=== PATIENT | male | born 1945 | race African-American/Black ===

== ENCOUNTER 2017-09-17 07:59 | Outpatient (CLI) | payer MEDICARE ==
--- NOTE | 2017-09-17 10:08 | MRI ---
MRI LUMBAR SPINE WITHOUT CONTRAST: HISTORY: Low back pain. 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 COMPARISON: None. FINDINGS: Aortic contour is unremarkable. There appears to be extensive retroperitoneal adenopathy. Abnormal appearance of the left kidney which is dysmorphic. Numerous T2 mildly hyperintense foci which are round throughout the liver. There are extensive areas of loss of T1 marrow signal throughout the thoracolumbar spine as well as o f the sacrum. Levels are as follows: T12-L1: Severe height loss of disk space. Circumferential disk bulge and posterior disk-osteophyte complex. The spinal canal measures 9 mm. Moderate facet arthropathy. Moderate degenerative disease at the spinous processes. L1-L2: Moderate degenerative disk space height loss and circumferential disk bulge. Moderate facet arthrosis. The spinal canal measures 8 mm. L2-3: Severe degenerative disk space height loss. Circumferential disk bulge. Posterior disk-osteo phyte complex. Moderate to severe left and moderate right-sided facet arthropathy. The spinal canal is narrowed to approximately 5 mm. There is severe left and moderate to severe right neural foraminal narrowing. L3-4: Moderate degenerative disk space height loss. Severe facet arthropathy. Severe disk-osteophy te complex. The spinal canal is narrowed to approximately 6 mm. There is severe left and moderate t o severe right neural foraminal narrowing. L4-5: Posterior disk-osteophyte complex. There is narrowing of the spinal canal to approximately 4 mm. Moderate to severe right and moderate left side neural foraminal narrowing. L5-S1: Moderate degenerative disk space height loss. IMPRESSION: 1. Multifocal areas of osseous metastatic disease at the thoracolumbar spine as well as the sacrum. No evidence for pathologic fracture. 2. Multilevel moderate to severe degenerative disease as described above with neural foraminal and s eleuterio canal narrowing. 3. Free fluid in the pelvis with concern for retroperitoneal adenopathy and possibly even peritoneal studding of malignancy. CT of the abdomen and pelvis with contrast recommended. 4. Areas of potential clumping of nerve roots may be due to multilevel spinal canal narrowing or les s likely meningeal spread of tumor. MRI lumbar spine with and without contrast would be necessary fo r that finding. 5. Free fluid in the pelvis as well as vascular congestion may be sequelae of metastatic disease. 6. Very dysmorphic appearance of the left kidney. Again, a CT abdomen and pelvis with contrast is r ecommended. Kira Rich notified of findings via telephone at 9:10 a.m. CODE CR POS: [facility]
== END 2017-09-17 08:00 | disposition home or self-care (01) ==
LOC: MRI 07:59
PROVIDERS: ATTEND Nurse Practitioner Family
DX: M47.816 Spondylosis without myelopathy or radiculopathy, lumbar region (principal); C79.51 Secondary malignant neoplasm of bone; M48.061 Spinal stenosis, lumbar region without neurogenic claudication; M99.73 Connective tissue and disc stenosis of intervertebral foramina of lumbar region
CPT/HCPCS: 72148

== ENCOUNTER 2017-09-18 07:43 | Outpatient (CLI) | payer MEDICARE ==
[2017-09-18] MEDS ORDERED: Iopamidol 370 76% 100 ML VIAL ONE (16:51)
== END 2017-09-18 07:44 | disposition home or self-care (01) ==
LOC: BICCT 07:43
PROVIDERS: ATTEND Internal Medicine
DX: R10.12 Left upper quadrant pain (principal); R93.5 Abnormal findings on diagnostic imaging of other abdominal regions, including retroperitoneum
CPT/HCPCS: 74177

== ENCOUNTER 2017-10-04 19:36 | Inpatient (IN) | payer MEDICARE ==
[2017-10-04] MEDS ORDERED: Fentanyl 100 MCG/2 ML VIAL ONE (19:48)
[2017-10-04] MEDS ORDERED: EPINEPHrine 1 MG, Admixture Fee 1 EACH in Dextrose 5% in Water 250 ML IVPB SCH ×3 (20:00)
[2017-10-04 20:08] LABS: pH, Arterial 6.98 (7.35-7.45)
[2017-10-04] MEDS ORDERED: Albuterol Sulfate 2.5 mg/0.5 ml Neb ONE (20:10)
[2017-10-04] MEDS ORDERED: Dextrose 50% Abboject 50 ML SYRINGE ONE (20:11)
[2017-10-04 20:12] LABS: INR-International Normal Ratio 3.7; PTT 53.2 SEC (22.9-36.1); Prothrombin Time 38.5 SEC (12.0-14.7)
[2017-10-04 20:14] LABS: Base Excess-Venous -25.9 mmol/L (-30.0-30.0); Bicarbonate (HCO3v) 10.4 mmol/L (1.0-85.0); CO2 Tension (PvCO2) 77.8 mmHg (41.0-51.0); Calcium, Ionized 1.43 mmol/L (1.12-1.32); Hemoglobin - Calc 12.5 g/dL (12.0-18.0); O2 Tension (PvO2) 63.3 mmHg (35.0-45.0); T. Carbon Dioxide 12.8 mmol/L (1.0-85.0); pH (Venous) 6.736 (7.35-7.45); vO2 Saturation-calc 61.1 % (0.0-100.0)
[2017-10-04] MEDS ORDERED: fentaNYL Citrate/PF 2,000 MCG in Sodium Chloride 0.9% 60 ML IV SCH (20:15)
[2017-10-04 20:20] LABS: Troponin I 0.046 ng/mL (< 0.028)
[2017-10-04 20:21] LABS: Base Excess (BEa) -22.5 mEq/L (0 (+/-) 2.5); Hematocrit-ABG 37.9 % (42.0-52.0); Hemoglobin (Hb) 10.7 g/dL (14.0-18.0); O2 Tension (PaO2) 66.4 mmHg (80.0-100.0)
[2017-10-04 20:22] LABS: Analyzer IN Cardio ER; Calcium, Ionized 1.3 mmol/L (1.12-1.30); Puncture Site LR
[2017-10-04 20:23] LABS: CKMB 8.5 ng/mL (0-6.6)
[2017-10-04 20:26] LABS: D-Dimer Test 15.91 *mcg/mL (0.27-0.43)
[2017-10-04 20:31] LABS: Digoxin Less than 0.15 ng/mL (0.8-2.0)
[2017-10-04] MEDS ORDERED: Calcium Chloride 1 GM/10 ML Abboject SYRINGE ONE (20:37)
[2017-10-04] MEDS ORDERED: Insulin Regular 300 UNITS/3 ML VIAL ONE ×2 (20:37→20:44)
[2017-10-04 20:42] LABS: Bilirubin Large (Negative); Blood, Urine Trace (Negative); Clarity CLOUDY (Clear); Glucose, Urine (Dipstick) Negative (Negative); Leukocyte Small (Negative); Nitrite Positive (Negative); Protein, Urine (Dipstick) Trace mg/dL (Neg-Trace); Specific Gravity, Urine 1.023 (1.002-1.036)
[2017-10-04 20:46] LABS: Bacteria/HPF None Seen HPF (None Seen); WBC/HPF 0-3 HPF (0-3)
[2017-10-04 20:48] LABS: Pathc Cast-AUWi Flag 10.02 (0-2.49); Yeast-AUWi Flag 84.6 (0-25.0)
[2017-10-04 20:50] LABS: Crystals/HPF 2+ AMORPH URATES HPF (Negative); Hyaline Casts/LPF 7-10 HYALINE CAST LPF (0-3 Hyaline); RBC/HPF 0-3 HPF (0-3); Yeast-All Forms None Seen HPF (None Seen)
[2017-10-04 20:51] LABS: Barbiturates Screen Detected (NotDetected); Medtox Reader # READER 1; Opiate Screen Detected (NotDetected)
[2017-10-04 20:52] LABS: Amphetamine Not Detected (NotDetected); Benzodiazepine Screen Not Detected (NotDetected); Cocaine Metabolite Screen Not Detected (NotDetected); Medtox Control Line Valid? VALID (VALID); Methadone Not Detected (NotDetected); Methamphetamine Not Detected (NotDetected); Oxycodone Screen Detected (NotDetected); Phencyclidine (PCP) Not Detected (NotDetected); THC/Cannabinoid Screen Not Detected (NotDetected); Tricyclic Screen Not Detected (NotDetected)
[2017-10-04] MEDS ORDERED: Sodium Bicarb 50 MEQ/50 ML Abboject 8.4% SYRINGE ONE ×2 (20:56→21:58)
[2017-10-04] MEDS ORDERED: SODIUM CHLORIDE 0.9% IVPB SCH (21:00)
[2017-10-04] MEDS ORDERED: PHYTONADIONE IVPB SCH (21:00)
[2017-10-04 21:33] LABS: Albumin 1.8 g/dL (3.4-4.8)
[2017-10-04 21:34] LABS: Chloride 103 mmol/L (98-107); Magnesium 2.8 mg/dL (1.6-2.6); Sodium 138 mmol/L (136-145)
[2017-10-04 21:35] LABS: Calcium 8.3 mg/dL (7.8-10.44); Glucose 344 mg/dL (83-110)
[2017-10-04 21:37] LABS: Bilirubin, Total 7.8 mg/dL (0.2-1.2)
[2017-10-04 21:38] LABS: Alkaline Phosphatase 475 U/L (40-150)
[2017-10-04 21:40] LABS: BUN (Urea Nitrogen) 70 mg/dL (8.4-25.7)
[2017-10-04 21:41] LABS: ALT (SGPT) 1248 U/L (8-55); CK (CPK) 895 U/L (30-200); Lipase 79 U/L (8-78)
[2017-10-04 21:42] LABS: AST (SGOT) Greater than 3500 U/L (5-34); Calc. Creatinine Clearance 0 mL/min (70-130); Carbon Dioxide Less than 8 mmol/L (23-31); Estimated GFR-MDRD 25; Potassium 6.6 mmol/L (3.5-5.1); Protein, Total 3.8 g/dL (5.8-8.1)
[2017-10-04 21:44] LABS: Actual Bicarbonate (HCO3a) 8.6 mEq/L (22-26); Base Excess (BEa) -19.3 mEq/L (0 (+/-) 2.5); CO2 Tension 27.2 mmHg (35.0-45.0); O2 Tension (PaO2) 346.3 mmHg (80.0-100.0); pH, Arterial 7.12 (7.35-7.45)
[2017-10-04 21:47] LABS: Hematocrit-ABG 32.3 % (42.0-52.0); Hemoglobin (Hb) 8.6 g/dL (14.0-18.0)
[2017-10-04 21:48] LABS: Analyzer IN Cardio ER; Puncture Site LR
[2017-10-04] MEDS ORDERED: Sodium Bicarbonate 2.4 MEQ/5 ML ONE (21:57)
[2017-10-04 22:12] LABS: Calcium 8.4 mg/dL (7.8-10.44); Uric Acid 20.1 mg/dL (3.5-7.2)
[2017-10-04] MEDS ORDERED: Cefepime 2 GM, Syringe 2.5 ML in Sterile Water 10 ML SLOW IVP SCH (22:15)
--- NOTE | 2017-10-04 22:31 | RAD ---
PORTABLE AP CHEST X-RAY 10/04/17 HISTORY: Patient with colon cancer. Patient is post CPR. FINDINGS: Endotracheal tube is noted in place which is near the level of the manueal. The manuela is difficult to adequately visualize, but the nasogastric tube should probably be slightly withdrawn. Postsurgical c hanges lower cervical spine are noted. A pacing pad overlie the right chest. There are increased patc hy parenchymal changes in the right hilar and infrahilar location which could be related to atelectas is or aspiration pneumonitis or possibly infectious process related to pneumonia. No pleural effusion or pneumothorax is seen on this supine view of the chest. Osseous structures appear intact. IMPRESSION: 1. Patchy parenchymal changes right hilar and infrahilar location which could be related to atel ectasis, aspiration pneumonitis or pneumonia. Followup evaluation is recommended. This exam is obtain ed in shallow depth of inspiration. 2. Endotracheal tube noted in place. The tip of the endotracheal tube appears to be at the level of the manuela and should be withdrawn. Endotracheal tube overlies the T5 vertebral body. POS: [facility]
--- NOTE | 2017-10-04 22:41 | CT ---
CT HEAD WITHOUT IV CONTRAST 10/04/17 HISTORY: Altered mental status. History of colon cancer. Suspected opiate overdose. COMPARISON: None available. FINDINGS: There is no evidence of a hemorrhage, acute infarction, mass effect, or midline shift. Mild cerebral volume loss is present. The ventricular system is normal in size, shape and position for the degree o f sulcal atrophy. There are symmetric calcifications within the basal ganglia bilaterally. The calvar ial structures are intact. There is minimal mucosal thickening in each maxillary antrum. Mastoid air cells are clear. IMPRESSION: No acute intracranial abnormality is demonstrated. POS: [facility]
[2017-10-04] MEDS ORDERED: Ondansetron HCl/PF 4 MG/2 ML Vial ONE (23:07)
[2017-10-04 23:49] LABS: Troponin I 0.244 ng/mL (< 0.028)
--- NOTE | 2017-10-04 23:53 | CT ---
CT CHEST WITHOUT IV CONTRAST CT ABDOMEN AND PELVIS WITHOUT IV CONTRAST 10/04/17 HISTORY: Recent history of colon cancer. Altered mental status. History of sickle cell disease. Shortness of b reath. COMPARISON: None available. NONCONTRAST CT CHEST: There are areas of consolidation at the posteromedial aspect of each lung base with additional scatte red patchy densities within the lungs bilaterally. The findings are worrisome for infectious process. A few of the patchy densities have a nodular appearance and followup to resolution is recommended. Endotracheal tube is noted in place with the tip of the endotracheal tube just within the origin of t he right main stem bronchus. The endotracheal tube should be withdrawn. Nasogastric tube is noted in place with the tip in the body of the stomach. Lack of intravenous contrast limits evaluation of vascular structures and the mediastinum. No definit e enlarged lymph nodes are delineated on this exam. NONCONTRAST CT ABDOMEN AND PELVIS: The liver is enlarged in craniocaudal dimensions measuring 18.5 cm . The liver also demonstrates diff use decreased attenuation suggesting diffuse fatty infiltration. There is mild increased density with in the gallbladder lumen which could be related to sludge. There is a large exophytic hypodense lesion involving the superior pole left kidney which measures 7. 8 cm. Due to streak artifact from patient's arms down by the side, an accurate attenuation coefficien t is difficult to obtain. This probably represents a large left renal cyst. There is an approximately 2.1 cm hypodense lesion in the inferior pole left kidney as well. No hydronephrosis or renal or ureteral calculus is appreciated. The pancreas, bilateral adrenal glands, and right kidney demonstrate a grossly normal nonenhanced CT appearance. Ortega catheter is present in a decompressed urinary bladder. There is a left common femoral central venous catheter in place with the tip in the IVC. This may rep resent a hemodialysis catheter. Vascular calcifications are seen in the abdominal aorta and iliac arteries. There is a small amount of intraperitoneal free fluid in the abdomen with mild edema within the centr al mesentery. There are areas of increased density within the region of the cecum and ascending colon which is like ly related to ingested material/retained fecal material with additional areas seen throughout the rem ainder of the colon. There is increased density within the urinary bladder with Ortega catheter in place. The increased den sity may be related to hemorrhage within the urinary bladder. Mild generalized thickening involving the sigmoid colon and rectum. This may be attributable to incom plete distention. Mild edema is seen in the presacral location with mild generalized subcutaneous makeda ma also present. Multilevel degenerative changes are seen throughout the spine. IMPRESSION: 1. Consolidation at the posteromedial aspect of the lower lobes bilaterally with mild patchy den sity in the posterior aspect of the right upper lobe. Additional nodular and slight patchy densities scattered throughout the lungs bilaterally greater at the right lung base. Findings are worrisome for infectious process. Atypical pneumonia is a possibility. However, followup to complete resolution is recommended given the areas of associated nodularity. 2. Endotracheal tube noted in place with the tip just within the origin and proximal right main stem bronchus. The endotracheal tube should be withdrawn. 3. Nasogastric tube noted in place with tip in the body of the stomach. 4. Ortega catheter noted in place. There is increased density within the decompressed urinary misty dder which may be related to small amount of hemorrhage. 5. Hepatomegaly with diffuse fatty infiltration of the liver. 6. Increased density within the gallbladder which may be related to sludge and/or gallbladder ca lculi. 7. Hypodense left renal lesions likely related to renal cysts. An accurate attenuation coefficie nt is unable to be obtained due to patient's arms down by the side. 8. Small amount of ascites with edema within the mesentery. 9. Thickening in the region of the sigmoid and rectum most likely attributable to incomplete dis tention as opposed to colitis, although this could not be entirely excluded. 10. Few nonspecific aortocaval lymph nodes are present which do appear mildly increased in number but are not enlarged by CT size criteria. 11. Mild subcutaneous edema. POS: [facility]
[2017-10-05] MEDS ORDERED: Norepinephrine 8 MG in Sodium Chloride 0.9% 250 ML 250 ML IVPB PRN (00:43)
[2017-10-05] MEDS ORDERED: Sedation Protocol FS ONE (00:43)
[2017-10-05] MEDS ORDERED: Bisacodyl 10 MG SUPP PR PRN (00:43)
[2017-10-05] MEDS ORDERED: Ondansetron HCl/PF 4 MG/2 ML Vial IVP PRN (00:43)
[2017-10-05] MEDS ORDERED: Dextrose 5% in Water 1,000 ML IV PRN (00:44)
[2017-10-05] MEDS ORDERED: Dextrose 50% Abboject 50 ML SYRINGE SLOW IVP PRN (00:44)
[2017-10-05] MEDS ORDERED: HumaLOG 300 UNITS/3 ML VIAL SC PRN ×2 (00:44)
[2017-10-05] MEDS ORDERED: Propofol 1,000 MG/100 ML VIAL IV PRN (00:58)
[2017-10-05] MEDS ORDERED: Morphine 2 MG/ML SYRINGE SLOW IVP PRN (00:58)
[2017-10-05] MEDS ORDERED: Lorazepam 2 MG/ML VIAL SLOW IVP PRN (00:58)
[2017-10-05] MEDS ORDERED: fentaNYL Citrate/PF 2,000 MCG in Sodium Chloride 0.9% 60 ML IV SCH (00:58)
[2017-10-05] MEDS ORDERED: DISCONTINUE PREVIOUS NARCOTIC PAIN MEDICATIONS AND BENZODIAZEPINES FS SCH (00:58)
[2017-10-05] MEDS ORDERED: Sodium Chloride 0.9% 1,000 ML IV SCH (01:00)
[2017-10-05 01:10] VITALS: BMI 24.6
[2017-10-05] MEDS ORDERED: Sodium Bicarbonate 150 MEQ in Dextrose 5 %-0.45 % NaCl 1,000 ML IV SCH (01:30)
--- NOTE | 2017-10-05 01:31 | CON ---
DATE OF CONSULTATION: 10/04/2017 CONSULTING PHYSICIAN: Trudi Rain MD REQUESTING PHYSICIAN: Carrillo Hassan DO, ER physician. REASON FOR CONSULTATION: Severe hyperkalemia. IMPRESSION: 1. Severe hyperkalemia, likely in the context of tissue breakdown with release of intracellular pota ssium. 2. Cardiac arrest, likely related to the severe hyperkalemia. 3. Severe metabolic acidosis, which is also affecting the hyperkalemia due to cellular shift of pota ssium. 4. Acute on chronic kidney disease. PLAN: 1. Emergency hemodialysis to address the severe symptomatic hyperkalemia. The ER physician is in th e process in the middle of securing a dialysis catheter to that effect. HISTORY OF PRESENT ILLNESS: History is that of 71-year-old gentleman, who invariably at this point i s intubated, could not offer much of any history. However, going by the medical record, the patient does have metastatic invasive colorectal adenocarcinoma with diffuse metastasis to the liver. The pa kathy was found down at home by the EMS and was brought in here, where the patient was noted to have severe cardiac arrhythmia with clinical evaluation revealing severe hyperkalemia with potassium of 7. As a result of this, decision has been taken to involve Renal in the management of this case. PAST MEDICAL HISTORY: Significant for, 1. Invasive colorectal adenocarcinoma with metastasis to the liver. 2. Chronic kidney disease. MEDICATIONS: Could not be substantiated. FAMILY HISTORY: Could not be obtained. SOCIAL HISTORY: Unobtainable at this point. REVIEW OF SYSTEMS: Could not be done. LABORATORY INVESTIGATION: Significant for potassium of 7, creatinine of 4.5 with pH of 6.98 and bica rbonate of 8 with base excess of 32.5. Lactate of 10.10. PHYSICAL EXAMINATION: GENERAL: The patient was found to be intubated with the following vital signs. VITAL SIGNS: Blood pressure of 105/62, respiratory rate of 18, O2 sat of 96%. HEENT: Remarkable for endotracheal tube in place. CARDIOVASCULAR SYSTEM: First and second heart sounds were heard. RESPIRATORY SYSTEM: Clear to auscultation anteriorly. DIGESTIVE SYSTEM: Revealed a slightly distended abdomen. EXTREMITIES: No peripheral edema. SKIN: No new gross rash. LYMPHATICS: No peripheral lymphadenopathy. SUMMARY: A 71-year-old gentleman who was found down, likely due to cardiac arrest, who presented her e and noted to have severe hyperkalemia. Thank you for this consultation. We will follow with you. The prognosis of this patient is very poo r.
--- NOTE | 2017-10-05 01:38 | HP ---
PRIMARY CARE PHYSICIAN: [facility] call admission. DATE OF SERVICE: 10/05/2017. REASON FOR ADMISSION: Cardiac arrest status post CPR, acute kidney failure, shock liver, multiorgan failure. HISTORY OF PRESENT ILLNESS: The patient was brought to ER in intubated condition, so the patient was not able to provide any history. Family member was present and they do not have any clear-cut idea what happened at home. The patient was unresponsive and he had code blue at the scene. Paramedics performed CPR and the paramedics intubated him. Patient was given ketamine, Narcan and calcium. As per paramedics, he was having difficulty breathing and he had a code at the scene. He was given 3 epinephrine, sodium bicarbonate, circulation came back and the patient was found with V-tach and they gave him shock. Subsequently, after intubation, patient was brought to ER. In the emergency room, patient had CT of the abdomen and pelvis, which showed consolidation of the posterior medial aspect of the lower lobes bilaterally as well as right upper lobe, cholelithiasis, fatty liver. Routine blood tests showed acute kidney failure, hyperkalemia, abnormal LFT, elevated troponin, coagulopathy, elevated D-dimer and urinalysis, suspected for UTI. ALLERGIES: No known drug allergy. CURRENT HOME MEDICATIONS: Unfortunately, the patient's family member did not bring his home medication, so unable to review. Family member does not have any clue of his home medications. PAST MEDICAL HISTORY: Colon cancer diagnosed in 09/2017, herniated disk, hemorrhoid, hypertension, dyslipidemia, asthma. PAST SURGICAL HISTORY: Neck surgery in 01/2016. PAST PSYCHIATRIC HISTORY: As per family member, no previous psychiatric hospitalization or psychiatric medical history. SOCIAL HISTORY: Patient is and lives at home with his . No history of tobacco, alcohol or illicit drug abuse. FAMILY HISTORY: No strong family history of premature coronary artery disease, stroke or cancer. REVIEW OF SYSTEMS: All review of systems tried to review with the patient, but unable to review because of intubated status. EMERGENCY ROOM COURSE: In the emergency room, the patient is given epinephrine drip, cefepime 2 gram, vancomycin 1 gram, sodium bicarbonate 2 ampule, vitamin K 10 mg, Kayexalate 30 gram, Levophed drip, Novolin R 10 units, fentanyl, albuterol nebulization, IV fluid D50, calcium chloride, atropine, fentanyl. PHYSICAL EXAMINATION: VITAL SIGNS: On arrival, blood pressure 106/82, pulse 91, respiratory rate 17, saturation 100% on ventilator, temperature 93.4. Weight 57.9 kilograms. GENERAL: The patient is currently on induced hypothermia protocol, intubated, sedated, no acute distress. HEAD: Normocephalic, atraumatic. EYES: Pupils round, reactive to light. ENT: Endotracheal tube in place. Oropharynx within normal limits. Moist mucous membranes. NECK: Supple. No JVD, no thyromegaly, no carotid bruit, no jugular venous distention. LUNGS: Clear to auscultation without any obvious wheezing, but scattered rales noted. CARDIAC: S1, S2, tachycardia. ABDOMEN: Soft, bowel sounds present, no distention. No organomegaly, no mass. GENITOURINARY: Dialysis catheter in place. BACK: Unremarkable. No CVA tenderness. EXTREMITIES: Upper extremity, passive movement of all joints are normal. Lower extremity, no edema. Good distal pulsation. NEUROLOGIC: Unable to assess at this point, because of intubated status. PSYCHIATRIC: Unable to assess, because of intubated status. SKIN: No skin rash. SIGNIFICANT LABORATORY DATA AND IMAGING: EKG showing left axis deviation, LVH, wide QRS complex, RBBB, left anterior fascicular block. Chest x-ray is showing patchy parenchymal changes in the right hilar and infrahilar location. Endotracheal tube in place. CT brain negative for any acute intracranial process. CT of the abdomen and pelvis showing consolidation of posteromedial aspect of the lower lobe bilaterally and right upper lobe, fatty liver, cholelithiasis, ascites, subcutaneous edema. CBC: Hematocrit 37. INR 3.7. D-dimer 15.9, pH 6.98, CO2 35, O2 66.4, saturation 73. Sodium 136, potassium 7.0, BUN 17, creatinine 4.20, glucose 31, calcium 8.3. Lactic acid 17.7, CK-MB 8.5, troponin 0.046. BNP 228.4. TSH 2.54, albumin 1.8, globulin 2.0, lipase 79. Urinalysis suggestive of UTI. Urine drug screen positive for opiates, oxycodone, and barbiturate. Digoxin level less than 0.15. IMPRESSION: 1. Status post cardiac arrest, out of hospital, status post successful resuscitation. 2. Acute hypoxic respiratory failure, on ventilator. 3. Acute kidney failure. 4. Metabolic acidosis with lactic acidosis. 5. Coagulopathy. 6. Ischemic hepatitis. 7. Hyperkalemia. 8. Induced hypothermia after arrest. 9. Elevated D-dimer. 10. Hypoglycemia and subsequent hyperglycemia. 11. Demand ischemia of myocardium. 12. Protein calorie malnutrition, severe with hypoalbuminemia. 13. Urinary tract infection. 14. Aspiration pneumonia. 15. Fatty liver. 16. Anasarca. 17. Elevated BNP. PLAN: 1. Admission to CCU. Pulmonary consultation, Cardiology consultation, Nephrology consultation. Patient will need immediate hemodialysis today in the ICU. Patient will be given bicarbonate drip, Levophed support ventilator per pulmonary. Echocardiography, serial cardiac enzymes. Ultrasound gallbladder. Repeat labs tomorrow and monitor daily. One FFP, broad spectrum antibiotic therapy with vancomycin and Zosyn, Solu-Medrol. Hyperglycemia protocol treatment. Ventilation sedation protocol. 2. Deep venous thrombosis prophylaxis. No Lovenox or any deep venous thrombosis prophylaxis because of coagulopathy. 3. Gastrointestinal prophylaxis, Pepcid 20 mg IV daily. 4. Code status: The patient is FULL CODE. The patient's is surrogate decision maker. Prognosis is poor. Condition critical. Plan of care discussed with the patient's family member in the emergency room. ISAÍASD
[2017-10-05 02:11] LABS: HBSAg Index 0.27 S/CO (0-0.99); Hep B Core Total Ab Non-Reactive (NonReactive); Hep B Core Total Index 0.06 S/CO (0-0.79); Hep B Surf AB Non-Reactive (NonReactive); Hep B Surf Ag Non-Reactive S/CO (NonReactive); Hep C IgG Ab Non-Reactive (NonReactive); Hep C Index 0.09 S/CO (0-0.79)
[2017-10-05] MEDS ORDERED: EPINEPHrine 1 MG, Admixture Fee 1 EACH in Dextrose 5% in Water 250 ML IVPB SCH ×3 (02:15)
[2017-10-05] MEDS ORDERED: Vasopressin 40 UNIT, Admixture Fee 1 EACH in Sodium Chloride 0.9% 100 ML IV SCH (02:15)
[2017-10-05 02:25] LABS: Lactic Acid 21.5 mmol/L (0.5-2.2)
[2017-10-05] MEDS ORDERED: Atropine Sulfate 1 mg/10 ml Syringe ONE (03:00)
[2017-10-05] MEDS ORDERED: Calcium Chloride 1 GM/10 ML Abboject SYRINGE ONE ×2 (03:00→11:58)
[2017-10-05] MEDS ORDERED: EPINEPHrine 1 MG/10 ML Abboject SYRINGE ONE (03:00)
[2017-10-05] MEDS ORDERED: Dextrose 50% Abboject 50 ML SYRINGE ONE (03:00)
[2017-10-05] MEDS ORDERED: Sodium Bicarb 50 MEQ/50 ML Abboject 8.4% SYRINGE ONE (03:00)
[2017-10-05 03:11] LABS: Troponin I 0.533 ng/mL (< 0.028)
--- NOTE | 2017-10-05 03:37 | PDOC.OP ---
Operative Note - Operative Note Operative Note: Right subclavian CVC placement INDICATION: Hypotension needing medical pressure support PROCEDURE SEISMIC PROSPECTING OBSERVER: Ankur Peguero DO, John Massoud, MD ATTENDING PHYSICIAN: Giancarlo Houston MD CONSENT: The procedure was performed emergently and the permission was implied because of the emergent nature. PROCEDURE SUMMARY: A time out was performed. My hands were washed immediately prior to the procedure. I wore a surgical cap, mask with protective eyewear, full gown and sterile gloves throughout the procedure. The patient was placed in Trendelenburg position. Right chest region was prepped using chlorhexidine scrub and draped in sterile fashion using a three quarter sheet drape. The introducer needle was inserted approximately two centimeters lateral to and 1 cm inferior to the normal curvature of the patient's clavicle and advanced until venous return. The syringe was removed and a guidewire was advanced into the introducer needle. A small incision was made at the skin surface with a scalpel and the introducer needle was exchanged for a dilator over the guidewire. After appropriate dilation was obtained, the dilator was exchanged over the wire for a central venous catheter. The wire was removed and the catheter was sutured in place at 15 cm. The catheter was secured with 3-0 silk suture then dressed with sterile dressing. The patient tolerated the procedure without any hemodynamic compromise. At time of procedure completion, all ports aspirated and flushed properly. Post-procedure chest x-ray found catheter tip in place without pneumothorax.
[2017-10-05 05:12] LABS: Calcium 8.6 mg/dL (7.8-10.44); Magnesium 2.2 mg/dL (1.6-2.6)
[2017-10-05 05:13] LABS: Lactic Acid 9.6 mmol/L (0.5-2.2)
[2017-10-05 05:15] LABS: CKMB 153.7 ng/mL (0-6.6); Troponin I 0.729 ng/mL (< 0.028)
[2017-10-05 05:52] LABS: INR-International Normal Ratio 3.2; PTT 73.6 SEC (22.9-36.1); Prothrombin Time 34.5 SEC (12.0-14.7)
[2017-10-05] MEDS: Piperacillin/Tazobactam 2.25 GM in Sodium Chloride 0.9% 100 ML IVPB SCH ×3 (06:00→17:40)
[2017-10-05 07:40] LABS: Actual Bicarbonate (HCO3a) 9.9 mEq/L (22-26); Base Excess (BEa) -16.6 mEq/L (0 (+/-) 2.5); CO2 Tension 26.4 mmHg (35.0-45.0); O2 Tension (PaO2) 123.5 mmHg (80.0-100.0); pH, Arterial 7.19 (7.35-7.45)
[2017-10-05 07:41] LABS: Calcium, Ionized 0.9 mmol/L (1.12-1.30); Hematocrit-ABG 34.4 % (42.0-52.0); Hemoglobin (Hb) 9.5 g/dL (14.0-18.0)
[2017-10-05 07:42] LABS: Puncture Site RBA
[2017-10-05] MEDS: Sodium Bicarb 50 MEQ/50 ML Abboject 8.4% SYRINGE ONE ×2 (08:36→08:37)
[2017-10-05] MEDS: Famotidine/PF 20 mg/2ml Vial SLOW IVP SCH (08:37)
[2017-10-05] MEDS ORDERED: FLU VACC TS2017-18 (>65YR) 0.5 ML SYRINGE IM ONE (09:00)
[2017-10-05] MEDS: Norepinephrine 16 MG in Sodium Chloride 0.9% 250 ML 250 ML IVPB PRN (09:07)
--- NOTE | 2017-10-05 09:23 | RAD ---
RADIOGRAPH CHEST 1 VIEW: Date: 10/05/17. Time: 3:09 a.m. HISTORY: A 71-year-old male status post central line placement. COMPARISON: 10/04/17 at 8:03 p.m. FINDINGS: Again, this is a supine image, which makes it insensitive for pneumothorax detection. Endotracheal t ube is again demonstrated to be at the manuela. Patchy infiltrates in the central portion of the righ t lung and at right base. No cardiomegaly. Right subclavian central vascular catheter has been plac ed, with distal tip overlying the expected location of the right atrium. No interval change in the a ppearance of the lungs. Interval placement of NG tube, with distal tip inferior to the field of view . IMPRESSION: 1. Interval placement of right subclavian central vascular catheter. 2. This is a supine image which would be insensitive for pneumothorax detection. 3. Right-sided infiltrates. 4. Interval placement of nasogastric tube. 5. Endotracheal tube remains at the manuela, directed at the right mainstem bronchus. CORAL [] POS: [facility]
[2017-10-05] MEDS ORDERED: Sodium Chloride 0.9% 1,000 ML IV PRN (09:28)
[2017-10-05] MEDS ORDERED: Sodium Bicarb 50 MEQ/50 ML Abboject 8.4% SYRINGE IVP SCH (09:30)
[2017-10-05 10:12] LABS: INR-International Normal Ratio 3.9; PTT 83.5 SEC (22.9-36.1); Prothrombin Time 39.9 SEC (12.0-14.7)
[2017-10-05 10:14] LABS: Mean Corpuscular HGB CONC 31.8 g/dL (32.0-36.0); Mean Corpuscular Hemoglobin 28.8 pg (27.0-31.0); Mean Corpuscular Volume 90.4 fl (80.0-94.0); Mean Platelet Volume 10.4 fL (7.4-10.4); Platelet Count 148 thou/uL (130-400); RBC Distribution Width 16.8 % (11.5-14.5); Red Blood Cell (RBC) Count 3.11 mill/uL (4.70-6.10); White Blood Cell (WBC) Count 15.3 thou/uL (4.8-10.8)
[2017-10-05 10:37] LABS: Band 18 % (5-11); Lymphocytes 11 % (21-51); MDiff Complete? YES; Metamyelocyte 5 % (0-0); Monocytes 1 % (0-10); Neutrophil 65 % (42-75)
[2017-10-05 10:38] LABS: Anion Gap 35 mmol/L (10-20); BUN (Urea Nitrogen) 41 mg/dL (8.4-25.7); Calc. Creatinine Clearance 29 mL/min (70-130); Calcium 7.3 mg/dL (7.8-10.44); Carbon Dioxide 12 mmol/L (23-31); Chloride 102 mmol/L (98-107); Estimated GFR-MDRD 36; Glucose 67 mg/dL (83-110); Magnesium 2.6 mg/dL (1.6-2.6); Phosphorus 7.2 mg/dL (2.3-4.7); Potassium 5.5 mmol/L (3.5-5.1); Sodium 143 mmol/L (136-145)
[2017-10-05 10:42] LABS: Lactic Acid 20.7 mmol/L (0.5-2.2)
[2017-10-05 11:02] LABS: CKMB 200.7 ng/mL (0-6.6); Troponin I 1.278 ng/mL (< 0.028)
[2017-10-05 11:55] LABS: pH, Arterial 7.27 (7.35-7.45)
[2017-10-05 11:56] LABS: O2 Tension (PaO2) 159.4 mmHg (80.0-100.0)
[2017-10-05 11:57] LABS: Base Excess (BEa) -16.2 mEq/L (0 (+/-) 2.5); Hematocrit-ABG 29.7 % (42.0-52.0); Hemoglobin (Hb) 8.4 g/dL (14.0-18.0)
[2017-10-05 11:59] LABS: Calcium, Ionized 0.9 mmol/L (1.12-1.30); Puncture Site ALINE
--- NOTE | 2017-10-05 12:13 | CON ---
DATE OF CONSULTATION: 10/05/2017 INDICATION FOR CONSULTATION: This is a very unfortunate 71-year-old gentleman, who had apparently an out of hospital arrest. HISTORY OF PRESENT ILLNESS: This 71-year-old gentleman, who had not been feeling well for last sever al weeks. He was recently diagnosed in September with most likely colon cancer. He has been seen by Dr. Richmond, but no procedures has yet done I believe been started. He has not been feeling well and his was came home yesterday evening and noticed that he was somewhat unresponsive. She did kenan l the ambulance. They arrived and shortly after the patient was put in the ambulance, apparently he started receiving CPR. According to the , he was communicating somewhat with her, but was confus ed and not really communicating appropriately with her. He has had no previous cardiac history that she is aware of. He does have a history of hypercholesterolemia as well as hypertension, but has no previous history of cardiac disease. He has not been complaining of any cardiac symptoms such as [place] st pain or significant shortness of breath. When he arrived in the emergency room here, he has under gone a CT of the brain, CT of the abdomen and pelvis. CT of the brain is unremarkable. CT abdomen a nd pelvis does show some ascites, which is not severe ascites. He also has a large liver with possib le left renal cyst. His laboratory data show that he does have a coagulopathy also, which would rox markus worsening of liver problems. He has a fatty liver. His INR was 3.9, total bilirubin 7.8. His AST was 3500 indicating significant hepatic problems. This may be due to hyperperfusion if he was no t resuscitated soon enough or he was hypotensive during the ambulance trip that is uncertain, but at this time, it appears he has multiple problems which included also renal failure and hepatic failure. Echocardiogram shows a decreased ejection fraction of 30% to 35% compared with cardiac and also harry e failure. He has had also respiratory failure, which required intubation, appears to have multiorga n failure and prognosis obviously is good. The family is at the bedside and trying to get much histo ry as possible, the patient remains intubated. His EKG does not show any evidence of acute ischemia despite the cardiac enzymes being abnormal, which could be due to hyperperfusion and also due to CPR. The cardiac size significantly is not dilated, but he does have a dyskinesis of the septum and the remaining aspects are hypokinetic. He has only trace mitral and tricuspid valve regurgitation. Othe rwise, echocardiogram shows normal valvular structures. PAST MEDICAL HISTORY: Significant for COPD in the form of asthma. He has had hypertension, hypercho lesterolemia. He has had a C-spine surgery. He had an appendectomy. SOCIAL HISTORY: He is . He has 2 children with no heart disease. He is also have tobacco ab use. He is retired. MEDICATIONS: At home. He has been treated for medications for his hypertension, hypercholesterolemi a, and also pain medications for his back in the form of [place]. The asked to bring his medicine s, but we do not have the full list of the medications yet. ALLERGIES: None. REVIEW OF SYSTEMS: He has been complaining according to the family some shortness of breath, a dry c ough and a dry mouth. He has back pain compatible due to his herniated disk. He has been eating chriss y little. He has lost about 20 pounds in the last month. He has decreased urine output at home and also decreased bowel movements. Otherwise, review of systems Icannot be obtained, but the denie d any other significant problems on review of systems. PHYSICAL EXAMINATION: GENERAL: At this time reveals a very ill-appearing gentleman. VITAL SIGNS: Blood pressure is 99/86 with a heart rate is 98 at this time and shows what appears to be sinus rhythm. EKGs appear to be a right bundle branch block with left anterior fascicular block a nd may have been accelerated junctional rhythm. I cannot see any P waves previously. HEENT: Shows head to be normocephalic, atraumatic. Carotid pulses are present. I cannot hear any b ruits. He does have increased airway noise. He is intubated. LUNGS: His chest has diffuse rales throughout, but this appears to be upper airway noise. He has de creased breath sounds in the bases. CARDIOVASCULAR: Heart sounds are somewhat distant, but he has a normal S1, S2. I cannot hear an S3 nor an S4. There were no significant murmurs, heaves, thrills, bruits or rubs. ABDOMEN: Somewhat tense. I cannot hear any bowel sounds at this time. He does appear to have a lar ge liver. I cannot palpate any particular masses, but this is firm the entire abdomen. EXTREMITIES: Show no clubbing, cyanosis or edema. He is on a cooling blanket. The pedal pulses are difficult to palpate. NEUROLOGIC: The patient is sedated. He does have jaundice, mostly sclerae areas of the eyes. SKIN: Warm and dry at this time. IMPRESSION AND PLAN: 1. Multiorgan failure with acute hepatic injury or hepatic failure and possible colon cancer with me tastasis. He also has a history of what appears to have a fatty liver on the CT scan. 2. Renal failure, which is worsening since being admitted. His creatinine last was 4.7. His potass ium also was elevated at 5.1, increased now up to 6.6. 3. What appears to be cardiomyopathy perhaps may be due to the acute injury with ejection fraction o f 30% to 35%. He does not appear to be volume overloaded. We will continue his medicines at this ti me. There is no other cardiac intervention or procedures that need to be or can performed at this ti me. 4. Hepatomegaly associated with hepatic failure. This will be dealt by the primary service and GI. 5. Possible colon obstruction or small-bowel obstruction. 6. Hyperkalemia. We will continue to monitor this. He may need further intervention. He may need to undergo dialysis due to his renal failure. We will be more than happy to continue to follow the p atient with you, but overall assessment at this time but this is a very ill patient and the prognosis is extremely poor. He remains on the ventilator at this time and the family remains at the bedside.
[2017-10-05] MEDS: Hydrocortisone Sod Succ/PF 100 mg/2 ml Vial IVP SCH ×2 (12:30→17:56)
--- NOTE | 2017-10-05 12:45 | CON ---
DATE OF CONSULTATION: 10/05/2017 SERVICE: Pulmonary Medicine. REASON FOR CONSULTATION: Shock. HISTORY OF PRESENT ILLNESS: Patient is a 71-year-old -Thai male. He has a past medical history significant for colon cancer. He is a little secretive about his medical problems. The family is not really aware of the extent of his disease. Either way, he has got widespread disease with metastases to the liver. He started having increasing anorexia over the past week and a half. He started having yellowing of the eyes starting 4 days ago. This progressed to the point of altered mentation. Because of obtundation, EMS Services were called to evaluate him at his house. They brought him to the emergency department and apparently he lost pulse en route. CPR was performed. He was intubated prior to the CPR was initiated. He was ultimately brought to the emergency department and a code blue was in progress. He was given multiple rounds of epinephrine and bicarbonate. He had findings consistent with hyperkalemia on EKG. He was given some calcium and ultimately, spontaneous return of circulation was reestablished. The patient cannot provide me any additional elements of the history. There are multiple events overnight, including high blood pressures as well as low blood pressures. PAST MEDICAL HISTORY: 1. Colon cancer. 2. Hypertension. 3. Dyslipidemia. 4. Asthma. PAST SURGICAL HISTORY: Neck surgery. SOCIAL HISTORY: He lives at home with his . He has no exposure to alcohol , tobacco or illicit drug use. FAMILY HISTORY: Noncontributory. ALLERGIES: No known drug allergies. MEDICATIONS: List of his inpatient medications were reviewed and multiple updates were made at this time. REVIEW OF SYSTEMS: Cannot be obtained because the patient is obtunded. PHYSICAL EXAMINATION: VITAL SIGNS: Afebrile. He is currently hypothermic intentionally and is 91 degrees Fahrenheit. Pulse 87, blood pressure 99/86, respirations 24, saturation 99% on 41% FiO2 and a PEEP of 5. GENERAL: The patient is intubated. He is not on any medications for sedation, but remains completely obtunded. HEENT: Normocephalic, atraumatic. Sclerae yellow. Conjunctivae pink. Oral mucosa is moist without lesions. LUNGS: Decent air entry bilaterally with no prolonged expiratory phase or wheezing. Rhonchi and crackles are both present. HEART: Normal rate, regular. ABDOMEN: Soft, nontender, and nondistended. Bowel sounds are positive. MUSCULOSKELETAL: No cyanosis or clubbing. There is trace pitting in the bilateral lower extremities. NEUROLOGIC: The patient spontaneously opens and closes eyes, but he does not attend. He seems to have purposeful movement of the upper extremities and occasionally will reach towards his face. He withdraws from noxious stimuli in all 4 extremities. He is overbreathing the ventilator, cough, and gag. LABORATORY DATA: WBC 15.3, hemoglobin 9.0, platelets 148,000. Neutrophil count is 65% with 18% bands. INR 3.9 and up trending. A pH 7.27, pCO2 20, pO2 160. This was on 47% FiO2 at that time with pressure control ventilation. Creatinine 2.18 and gently down trending, BUN 41, anion gap 35, bicarbonate 12 which is also improving. Potassium 5.5, sodium 143. Troponin 1.2, CK 200. Lactate 21 and once again up trending. Nitrites are positive, but white blood cells are negative on urinalysis. Urine drug screen is positive for opiates and barbiturates. Digoxin level is low. Blood cultures x2 are unremarkable today. IMAGING: Chest x-ray demonstrates a right subclavian central venous catheter is in good position. There is an infiltrate in the right base. Enteric catheter is coursing below the level of the diaphragm. Endotracheal tube is a little bit deep. Low lung volumes are present. ASSESSMENT: 1. Acute hypoxic respiratory failure. 2. PEA arrest secondary to hyperkalemia. 3. Acute kidney injury. 4. Colon cancer, widely metastatic. 5. Acute liver failure. 6. Septic shock. 7. Coagulopathy secondary to likely liver failure. 8. Hyperkalemia. PLAN: We will continue dialysis and other supportive measures. I have made multiple adjustments to the ventilator to improve on his comfort and hopefully improve his minute volume, so that he can better buffer his acid base status. He will continue our antibiotics and steroids. I have updated some family members here at bedside and understand that he is in critical condition. There is a possibility that he will not recover from this hospital stay. He has got multisystem organ failure. At this point, the likelihood of a strong meaningful recovery is quite low. It all depends on whether or not we can clear his lactate and whether or not his liver recovers function. I will watch for signs of bleeding. At present, FFP will be provided. I will give him some vitamin K. Pulmonary Critical Care will continue to follow. CRITICAL CARE TIME: 95 minutes. CLARICE
[2017-10-05 16:18] LABS: Prothrombin Time 44.9 SEC (12.0-14.7)
[2017-10-05 16:32] LABS: Anion Gap 35 mmol/L (10-20); BUN (Urea Nitrogen) 42 mg/dL (8.4-25.7); Calc. Creatinine Clearance 28 mL/min (70-130); Calcium 6.8 mg/dL (7.8-10.44); Carbon Dioxide 10 mmol/L (23-31); Chloride 104 mmol/L (98-107); Estimated GFR-MDRD 35; Glucose 62 mg/dL (83-110); Magnesium 2.6 mg/dL (1.6-2.6); Phosphorus 8.1 mg/dL (2.3-4.7); Potassium 5.6 mmol/L (3.5-5.1); Sodium 143 mmol/L (136-145); Uric Acid 15.8 mg/dL (3.5-7.2)
[2017-10-05 16:39] LABS: Acetaminophen Less than 6.0 mcg/mL (10.0-30.0)
--- NOTE | 2017-10-05 16:39 | PDOC.PN ---
- Subjective Encounter Start Date: 10/05/17 Encounter Start Time: 12:05 PT seen and examined, chart reviewe olivia its entirety, this is my first visit with this patient Pt sedated and intubated, case discussed with Dr Miranda kilpatrick with his sonanayeli kilpatrick daughter, they voiced that if the pt or his unable ot make decision, that his daughter was to make decisions for him He remains on pressors, at decreased doses, art line placed for accurate BP monitoring no other acute events since admit - Objective Resuscitation Status: Resuscitation Status FULL:Full Resuscitation MAR Reviewed: Yes Vital Signs & Weight: Vital Signs (12 hours) Temp Pulse Resp BP Pulse Ox 10/05/17 16:12 70 128/37 L 10/05/17 12:01 84 158/47 H 10/05/17 08:00 97.1 F L 84 21 H 95 10/05/17 07:00 102 H Weight Admit Weight 148 lb 2.4 oz Weight 148 lb 2.4 oz Most Recent Monitor Data Heart Rate from ECG 67 NIBP 92/48 NIBP BP-Mean 58 Respiration from ECG 19 SpO2 98 I&O: 10/04/17 10/05/17 10/06/17 06:59 06:59 06:59 Intake Total 1099 Output Total 20 2 Balance -20 1097 Result Diagrams: 10/06/17 07:30 10/06/17 11:30 Additional Labs: Accuchecks 10/05/17 10/05/17 10/05/17 14:31 13:10 11:53 POC Glucose 78 76 75 10/05/17 10/05/17 10/05/17 09:40 06:21 04:29 POC Glucose 91 119 H 152 H 10/05/17 01:26 POC Glucose 199 H Radiology Reviewed by me: Yes EKG Reviewed by me: Yes Phys Exam - Physical Examination Constitutional: NAD HEENT: PERRLA, moist MMs, sclera anicteric, oral pharynx no lesions Neck: no nodes, no JVD, supple, full ROM Respiratory: no wheezing, no rales, clear to auscultation bilateral Cardiovascular: no significant murmur tachy Gastrointestinal: soft, no distention, positive bowel sounds Musculoskeletal: pulses present, edema present Lymphatic: no nodes Deviation from normal: laregly unresponsive on minimal sedation Skin: no rash, normal turgor, cap refill <2 seconds Dx/Plan (1) PEA (Pulseless electrical activity) Code(s): I46.9 - CARDIAC ARREST, CAUSE UNSPECIFIED Status: Acute (2) LEORA (acute kidney injury) Code(s): N17.9 - ACUTE KIDNEY FAILURE, UNSPECIFIED Status: Acute (3) Shock liver Code(s): K72.00 - ACUTE AND SUBACUTE HEPATIC FAILURE WITHOUT COMA Status: Acute (4) Acute hypoxemic respiratory failure Code(s): J96.01 - ACUTE RESPIRATORY FAILURE WITH HYPOXIA Status: Acute (5) Adenocarcinoma of colon metastatic to liver Code(s): C18.9 - MALIGNANT NEOPLASM OF COLON, UNSPECIFIED; C78.7 - SECONDARY MALIG NEOPLASM OF LIVER AND INTRAHEPATIC BILE DUCT Status: Acute (6) 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 on vent support, correct labs, support vitals, continue on vent.
[2017-10-05 16:41] LABS: INR-International Normal Ratio 4.5
[2017-10-05 16:48] LABS: Lactic Acid 22.3 mmol/L (0.5-2.2)
[2017-10-05 16:49] LABS: CKMB 206.8 ng/mL (0-6.6); Troponin I 2.461 ng/mL (< 0.028)
[2017-10-05 16:51] LABS: Acanthocytes SLIGHT = 1-5 cells (100X) (None Seen); Anisocytosis SLIGHT = 6-15 cells (100X) (0-5/hpf); Band 9 % (5-11); Crenated RBC SLIGHT = 1-5 cells (100X) (None Seen); Hemoglobin 8.1 g/dL (14.0-18.0); Hypochromia SLIGHT = 6-15 cells (100X) (0-5/hpf); LDH Greater than 4500 U/L (125-220); Lymphocytes 1 % (21-51); MDiff Complete? YES; Mean Corpuscular HGB CONC 32.4 g/dL (32.0-36.0); Mean Corpuscular Hemoglobin 29.4 pg (27.0-31.0); Mean Corpuscular Volume 90.5 fl (80.0-94.0); Mean Platelet Volume 7.3 fL (7.4-10.4); Monocytes 2 % (0-10); Neutrophil 88 % (42-75); PLT Morphology Comment Appears Adequate; Platelet Count 131 thou/uL (130-400); Polychromasia SLIGHT = 2-3 cells (100X) (0-2/hpf); RBC Distribution Width 16.8 % (11.5-14.5); Red Blood Cell (RBC) Count 2.76 mill/uL (4.70-6.10); Target Cells SLIGHT = 2-5 cells (100X) (0-1/hpf); White Blood Cell (WBC) Count 11.6 thou/uL (4.8-10.8)
[2017-10-05] MEDS ORDERED: DEXTROSE 5% IVPB SCH ×2 (17:00)
[2017-10-05] MEDS ORDERED: ACETYLCYSTEINE IVPB SCH ×2 (17:00)
[2017-10-05] MEDS ORDERED: WATER IVPB SCH ×2 (17:00)
[2017-10-05] MEDS: Sodium Bicarbonate 150 MEQ in Dextrose 5 %-0.45 % NaCl 1,000 ML IV SCH (17:39)
[2017-10-05] MEDS ORDERED: ACETYLCYSTEINE IVPB ONE ×4 (18:00→22:00)
[2017-10-05] MEDS ORDERED: WATER IVPB ONE ×4 (18:00→22:00)
[2017-10-05] MEDS ORDERED: DEXTROSE 5% IVPB ONE ×4 (18:00→22:00)
[2017-10-05] MEDS ORDERED: Vancomycin HCl 750 MG in Sodium Chloride 0.9% 250 ML 250 ML IVPB SCH (21:00)
--- NOTE | 2017-10-05 22:00 | ULT ---
HEPATIC ULTRASOUND WITH HEPATIC DOPPLER EVALUATION 10/05/17 HISTORY: Acute elevation in liver function tests. FINDINGS: The liver is diffusely heterogeneous in appearance. The liver is mildly enlarged measuring 18 cm in c raniocaudal dimensions. There is questionable measureable mass within the right hepatic lobe which me asures approximately 5.5 cm. The liver was noted to be enlarged on recent CT scan examination with as well as decreased attenuation. Exam was obtained with noncontrasted imaging which limits evaluation on that exam. Metastatic disease cannot be entirely excluded based on this exam. A postcontrasted CT abdomen and pelvis would be helpful depending on patient's renal function. The gallbladder is contracted. While wall of the gallbladder is at the upper limits of normal in [facility]. This is probably related to in complete distention of the gallbladder. No gallbladder calculus is seen. Common duct is not well visualized on this exam. The limited visualized portions of the celestin creas, visualized portions of the IVC and limited visualized portion of the proximal abdominal aorta demonstrate a normal sonographic appearance. The right kidney is incompletely evaluated as this exam was obtained for evaluation of the liver. The spleen is not visualized on this exam. Hepatic doppler evaluation with color flow and spectral an analysis. There does appear to be normal directional flow within the portal and hepatic veins. Arterial flow is documented in the hepatic artery. As noted above, the spleen is unable to be visualized on this examine and as the result the splenic a rtery and vein are not imaged. There is a small amount intraperitoneal free fluid identified with sug gestion of a small right pleural effusion. IMPRESSION: 1. Diffuse heterogeneous appearance of the liver which does not demonstrate typical appearance f or fatty infiltration. In addition, there is suggestion of a heterogeneous echogenic mass in the righ t hepatic lobe measuring 5.5 cm. Findings could be related to metastatic disease or infiltrative proc ess related to hepatocellular carcinoma. CT abdomen with IV contrast is recommended depending on jose ent renal insufficiency. If patient does have renal insufficiency, MRI examination without IV contras t may be beneficial for further evaluation of the liver. 2. The gallbladder is contracted. 3. Nonvisualization of the spleen. 4. Mild hepatomegaly. 5. Normal directional flow is seen within the portal and hepatic veins; although, the waveforms are dampened suggesting diminished flow. 6. Nonvisualization of the spleen. As a result, the splenic artery and vein are unable to be rebekah luated. 7. Small amount of ascites. POS: [facility]
[2017-10-05 22:08] LABS: Prothrombin Time 56.1 SEC (12.0-14.7)
[2017-10-05 22:09] LABS: PTT 98.2 SEC (22.9-36.1)
[2017-10-05 22:11] LABS: INR-International Normal Ratio 5.9
[2017-10-05 22:19] LABS: Anion Gap 36 mmol/L (10-20); BUN (Urea Nitrogen) 41 mg/dL (8.4-25.7); Calc. Creatinine Clearance 27 mL/min (70-130); Calcium 6.5 mg/dL (7.8-10.44); Chloride 102 mmol/L (98-107); Estimated GFR-MDRD 34; Glucose 147 mg/dL (83-110); Magnesium 2.7 mg/dL (1.6-2.6); Potassium 5.9 mmol/L (3.5-5.1); Sodium 141 mmol/L (136-145)
[2017-10-05 22:25] LABS: Carbon Dioxide 9 mmol/L (23-31); Phosphorus 9.7 mg/dL (2.3-4.7)
[2017-10-05 22:31] LABS: CKMB 188.1 ng/mL (0-6.6); Critical Call CKMBM RESULT DECREASING
[2017-10-05 22:33] LABS: Band 14 % (5-11); Hemoglobin 7.1 g/dL (14.0-18.0); Lymphocytes 6 % (21-51); MDiff Complete? YES; Mean Corpuscular HGB CONC 33.8 g/dL (32.0-36.0); Mean Corpuscular Hemoglobin 31.7 pg (27.0-31.0); Mean Corpuscular Volume 93.8 fl (80.0-94.0); Mean Platelet Volume 10.7 fL (7.4-10.4); Monocytes 2 % (0-10); Neutrophil 78 % (42-75); Nucleated RBC 1 % (0); PLT Morphology Comment Appears Decreased; Platelet Count 108 thou/uL (130-400); RBC Distribution Width 16.6 % (11.5-14.5); Red Blood Cell (RBC) Count 2.24 mill/uL (4.70-6.10); Target Cells SLIGHT = 2-5 cells (100X) (0-1/hpf); Troponin I 3.209 ng/mL (< 0.028); White Blood Cell (WBC) Count 10.7 thou/uL (4.8-10.8)
--- NOTE | 2017-10-06 00:32 | OP ---
DATE OF SERVICE: 10/05/2017 SERVICE: Pulmonary Medicine. PROCEDURE: Right-sided femoral artery catheter placement. CONSENT: The risks and benefits of this procedure were explained to the power of research attorney. All ques tions were answered and alternative options explained. The patient was unable to provide consent sec ondary to intubation and sedation. STAFF PHYSICIAN: Prasanna Sumner M.D. MEDICATIONS USED: None. INDICATIONS: Septic shock. DESCRIPTION OF PROCEDURE: A timeout was performed by the procedure team and patient. The patient wa s positively identified using name and date of . The procedure site was marked. Vital sign mon itoring was accomplished by noninvasive hemodynamic monitoring, pulse oximetry, and telemetry. With the patient in the supine position, the right groin was prepped and draped in sterile fashion. The femoral artery was identified using ultrasound. The course of the artery was mapped. A cannulat ion needle was passed into the femoral artery with return of bright red pulsatile blood. A guidewire was threaded through the needle. The needle was removed and an arterial catheter was then threaded o chriss the guidewire and secured in place with 3-0 silk sutures x2. The catheter was attached to the mo nitor and appropriate arterial waveform was identified. A sterile dressing was applied and procedure was terminated. ESTIMATED BLOOD LOSS: 5 mL. COMPLICATIONS: None.
[2017-10-06] MEDS: Piperacillin/Tazobactam 2.25 GM in Sodium Chloride 0.9% 100 ML IVPB SCH ×4 (00:55→17:41)
[2017-10-06] MEDS: Hydrocortisone Sod Succ/PF 100 mg/2 ml Vial IVP SCH ×4 (00:55→17:41)
--- NOTE | 2017-10-06 01:19 | PRG ---
DATE OF SERVICE: 10/05/2017 SUBJECTIVE: The patient was seen today undergoing hemodialysis. OBJECTIVE: HEENT: Remarkable for endotracheal tube in place. CARDIOVASCULAR SYSTEM: First and second heart sounds were heard. RESPIRATORY SYSTEM: Reveals vented sounds. DIGESTIVE SYSTEM: Revealed a benign abdomen. EXTREMITIES: No peripheral edema. SKIN: No new gross rash. LYMPHATICS: No peripheral lymphadenopathy. IMPRESSION: 1. Acute on chronic kidney disease, dialysis dependent. 2. Severe metabolic acidosis related to problem #1. 3. Tissue hypoperfusion . 4. Hyperkalemia. 5. Profound metabolic acidosis. PLAN: We will continue hemodialysis with ultrafiltration as tolerated by hemodynamics.
--- NOTE | 2017-10-06 01:41 | CON ---
DATE OF CONSULTATION: 10/05/2017 GI CONSULTATION HISTORY OF PRESENT ILLNESS: Mr. Raymond is a 71-year-old gentleman who is intubated in the ICU. The history comes from reviewing his chart and talking to his . Mr. Raymond is a new patient to our office of Dr. Das back in August for abdominal pain. Upper and lower endoscopy was recomme nded. He refused a colonoscopy, but also he had an EGD which was normal. Subsequent to that, he did return for a colonoscopy that on 09/26 at that time, he was found to have a rectal cancer. He was r eferred to Dr. So Richmond. The patient's notes they saw him recently. Other workup included an abdomen and pelvis CT scan before his admission here with contrast that showed multiple lesions in the liver consistent with metastatic disease. The patient's states that they are going to have a PET scan and then followup with Dr. Richmond again. In the interim, she noted that yesterday, when came up from work, he was not very responsive. EMS was ultimately called. There was concern for op iate overdose as he had prescriptions for morphine and hydrocodone. Ultimately, the patient coded at 1705. He was intubated and had CPR and was brought to the hospital. It is unclear how long the pat ient was down and what initial vital signs were. EMS arrived on the scene. I talked with the joseen lakeshia's here, he had some narcotic pain medication prescriptions, but had not taken much and she is here with the bottles that seemed quite full. A CAT scan of abdomen and pelvis revealed some consoli dation in lower lobes, cholelithiasis, and fatty liver. Labs revealed acute renal failure and elevat ed liver enzymes. His liver enzymes appear somewhat higher today and asked to evaluate him for that. PAST MEDICAL HISTORY: New diagnosis of colorectal cancer, likely metastatic to liver based on CT sca n. His PET scan is pending. Herniated disk, hemorrhoid, hypertension, dyslipidemia, asthma. PAST SURGICAL HISTORY: Neck surgery in 01/2016. SOCIAL HISTORY: The patient is and lives at home with , is here. REVIEW OF SYSTEMS: The patient cannot give this, but apparently he has had severe pain and actually was given morphine by the oncologist. Again, it does not seem he is taking much of that. The s tates this was due to the fact that he had severe bone pain and was felt that he may have bone metast asis. MEDICATIONS: Here in the emergency room, he was given epinephrine, cefepime, vancomycin, sodium bica rbonate, vitamin K, Kayexalate, Levophed drip, , Novolin, albuterol nebulization, D50, calcium c hloride, atropine and fentanyl. PRESENT MEDICATIONS: He is on DuoNeb p.r.n., Solu-Cortef q.6 hours, Humalog insulin, norepinephrine, Zofran p.r.n., Zosyn, vancomycin. HOME MEDICATIONS: Metoprolol, tamsulosin, Primidone, MS Contin, morphine just given a few days ago, pantoprazole, omeprazole, hydrocodone/acetaminophen 10/325, fluticasone, budesonide, atorvastat in, amlodipine. PHYSICAL EXAMINATION: GENERAL: Patient is intubated. He has got a warming blanket on. Apparently, he was treated with co oling therapy. VITAL SIGNS: Pulse is 75, blood pressure 127/83, respirations 18, temperature 97.1 presently. HEENT: He is nonicteric. bilirubin 10.4. ASSESSMENT: Mr. Raymond is a 71-year-old gentleman with a new diagnosis of what appears to be met astatic colon cancer, maybe fairly pervasive with liver involvement and bone involvement. Per the cherry chavez's , it has been so much involved, that he has had severe pain for which he was prescribed n arcotic pain medicines by his oncologist. 1. Now, he has been admitted with arrest. It is unclear if this is primary cardiac arrest or if th is was a respiratory arrest. In the event, he remains on the ventilator and sedated, he has gone thr ough a cooling protocol. His troponin max was 1.278, which makes a cardiac arrest less likely. 2. I have asked him regarding his elevated liver enzymes. Interestingly, he had a bilirubin of 10.4 on admission on 10/03/2017. AST and ALT of 682 and 336 and alkaline phosphatase of 749. Today, his bilirubin is 7.8, AST is increased to greater than 3500, and ALT 1248. The patient's CEA was elevat ed at 375. His LFTs in the outpatient setting before his endoscopy were mildly elevated, but with T and ALT in the range of about 100 to 200 and alkaline phosphatase in the range of about 200 as well . Differential diagnosis would include shock liver, although with a bilirubin of 10 on presentation, other etiologies may be at play such as diffusely metastatic liver disease from his cancer or possib ly some type of ischemic insult from tumor ingrowth into the portal vein or hepatic veins regarding h is cancer. Something along lines of Budd-Chiari found on which could be seen in hypercoagulable stat es seen with malignancies. 2. The patient's also gives a history of his eye started being a little yellow 4 days ago, whic h indicate something was going on before the time of his hospitalization, an acute event. Tylenol le kraig was not checked on admission. RECOMMENDATIONS: 1. Obtain Tylenol level. 2. Start Mucomyst. 3. Ultrasound Doppler of the liver. 4. Check an ammonia. ADDENDUM: Mr. Raymond's ammonia has come back at greater than 925 with his increasing INR up to 4.5 this aft teresa, and I think this represents fulminant liver failure. It is unlikely that that is from Tyleno l or shock liver. This is most likely related to aggressive replacement of normal liver tissue by me tastatic tumor. I suspect this based on his outside scan showing diffuse metastatic disease in the l iver, possibility of portal hepatic vein thrombosis is possible as well, this patient, however, is no t a candidate for anticoagulation in light of his metastatic cancer. This is not a correctable situa tion and I do not think it is a survivable condition no matter what the intervention. I will talk wi th the family again and recommend palliative care.
[2017-10-06] MEDS: Sodium Bicarbonate 150 MEQ in Dextrose 5 %-0.45 % NaCl 1,000 ML IV SCH ×2 (04:04→21:27)
[2017-10-06 05:20] LABS: ALT (SGPT) 3002 U/L (8-55); Albumin 3.7 g/dL (3.4-4.8); Alkaline Phosphatase 1674 U/L (40-150); Anion Gap 26 mmol/L (10-20); BUN (Urea Nitrogen) 10 mg/dL (8.4-25.7); Bilirubin, Total 15.2 mg/dL (0.2-1.2); Calc. Creatinine Clearance 87 mL/min (70-130); Calcium 9.1 mg/dL (7.8-10.44); Carbon Dioxide 22 mmol/L (23-31); Chloride 101 mmol/L (98-107); Estimated GFR-MDRD Greater than 90; Glucose 120 mg/dL (83-110); Potassium 3.5 mmol/L (3.5-5.1); Protein, Total 8.7 g/dL (5.8-8.1); Sodium 145 mmol/L (136-145)
[2017-10-06 05:43] LABS: Anisocytosis SLIGHT = 6-15 cells (100X) (0-5/hpf); Band 24 % (5-11); Eosinophils 1 % (0-10); Hemoglobin 11.1 g/dL (14.0-18.0); Lymphocytes 10 % (21-51); MDiff Complete? YES; Mean Corpuscular HGB CONC 34.6 g/dL (32.0-36.0); Mean Corpuscular Hemoglobin 30.7 pg (27.0-31.0); Mean Corpuscular Volume 88.6 fl (80.0-94.0); Mean Platelet Volume 10.3 fL (7.4-10.4); Metamyelocyte 1 % (0-0); Monocytes 4 % (0-10); Myelocyte 2 % (0-0); Neutrophil 58 % (42-75); Nucleated RBC 3 % (0); Platelet Count 121 thou/uL (130-400); RBC Distribution Width 15.8 % (11.5-14.5); Red Blood Cell (RBC) Count 3.63 mill/uL (4.70-6.10)
[2017-10-06 06:30] LABS: AST (SGOT) Greater than 3500 U/L (5-34)
[2017-10-06] MEDS: Famotidine/PF 20 mg/2ml Vial SLOW IVP SCH (07:58)
[2017-10-06 08:44] LABS: Actual Bicarbonate (HCO3a) 10.3 mEq/L (22-26); Base Excess (BEa) -15.8 mEq/L (0 (+/-) 2.5); CO2 Tension 25.1 mmHg (35.0-45.0); O2 Tension (PaO2) 95.3 mmHg (80.0-100.0); pH, Arterial 7.23 (7.35-7.45)
[2017-10-06 08:46] LABS: Calcium, Ionized 0.7 mmol/L (1.12-1.30); Hematocrit-ABG 29.1 % (42.0-52.0); Hemoglobin (Hb) 7.4 g/dL (14.0-18.0)
[2017-10-06 08:47] LABS: Puncture Site ALINE
[2017-10-06 08:50] LABS: INR-International Normal Ratio 3.4; Prothrombin Time 36.1 SEC (12.0-14.7)
[2017-10-06 08:51] LABS: PTT 82.2 SEC (22.9-36.1)
[2017-10-06 08:53] LABS: ALV-art Gradient 137.135 (0-20)
[2017-10-06 09:07] LABS: Anion Gap 40 mmol/L (10-20); BUN (Urea Nitrogen) 26 mg/dL (8.4-25.7); Calc. Creatinine Clearance 33 mL/min (70-130); Calcium 6.7 mg/dL (7.8-10.44); Carbon Dioxide 8 mmol/L (23-31); Chloride 97 mmol/L (98-107); Estimated GFR-MDRD 39; Glucose 88 mg/dL (83-110); Potassium 6.7 mmol/L (3.5-5.1); Sodium 138 mmol/L (136-145)
[2017-10-06 10:39] LABS: Band 30 % (5-11); Eosinophils 1 % (0-10); Lymphocytes 11 % (21-51); MDiff Complete? YES; Mean Corpuscular HGB CONC 34.8 g/dL (32.0-36.0); Mean Corpuscular Hemoglobin 31.1 pg (27.0-31.0); Mean Corpuscular Volume 89.3 fl (80.0-94.0); Mean Platelet Volume 9.8 fL (7.4-10.4); Metamyelocyte 5 % (0-0); Monocytes 2 % (0-10); Neutrophil 51 % (42-75); Nucleated RBC 14 % (0); Platelet Count 110 thou/uL (130-400); Red Blood Cell (RBC) Count 2.59 mill/uL (4.70-6.10); Vacuoles SLIGHT; White Blood Cell (WBC) Count 12.3 thou/uL (4.8-10.8)
[2017-10-06] MEDS ORDERED: Heparin 1,000 UNITS/ML VIAL ONE ×2 (11:11)
--- NOTE | 2017-10-06 11:18 | PRG ---
DATE OF SERVICE: 10/06/2017 SERVICE: Pulmonary Medicine. INTERVAL HISTORY: The patient is doing poorly from a metabolic standpoint. His blood pressure and h eart rate are under good control. His lungs seem to be doing what they are supposed to be doing. He has not made any urine overnight. He cannot provide any additional elements of the history. PHYSICAL EXAMINATION: VITAL SIGNS: Afebrile. He has been a little hypothermic and we are actively warming him. Pulse 71, blood pressure 131/26, respirations 21, saturation 99% on 30% FiO2 and a PEEP of 5. GENERAL: The patient is intubated. He is on no sedation and remains encephalopathic. HEENT: Normocephalic, atraumatic. Sclerae are white. Conjunctivae pink. Oral and nasal mucosa is moist without lesions. LUNGS: Decent air entry. Some rhonchi and crackles present. No prolonged expiratory phase or wheez ing is appreciated. HEART: Normal rate and regular. ABDOMEN: Soft, nontender, nondistended. Bowel sounds are positive. MUSCULOSKELETAL: No cyanosis or clubbing. There is diffuse 1-2+ pitting throughout. GENITOURINARY: Ortega catheter in place. NEUROLOGIC: He does not withdraw from noxious stimuli in upper or lower extremities. He is overbrea thing the ventilator, but has agonal type respirations. He has not had cough or gag. His pupils are essentially nonresponsive at this point. LABORATORY DATA: WBC 14.0, hemoglobin 11.1, platelets 121,000 and slightly improved. INR 3.4. PH 7 .23, pCO2 25, pO2 95, corresponding to saturation 97%. Potassium 6.7, bicarbonate 8, creatinine 2.02 , almost immediately roughly 2 hours after dialysis was ended. Calcium 6.7. AST and ALT seem to be finally down trending. Alkaline phosphatase is also down trending. Blood cultures x4 and urine cult ure are all negative. IMAGING DATA: Ultrasound of the abdomen demonstrates diffuse heterogeneous appearance of the liver w hich does not demonstrate typical appearance for fatty infiltration. There is heterogeneous echogeni c mass. Gallbladder is contracted. Normal directional flow is seen in the portal hepatic veins, non visualization of the spleen. There is a small amount of ascites. ASSESSMENT: 1. Acute hypoxic respiratory failure. 2. PEA arrest secondary to hyperkalemia. 3. Acute kidney injury. 4. Acute liver failure. 5. Colon cancer, widely metastatic. 6. Tumor lysis syndrome, possible. 7. Septic shock, possible. 8. Hyperkalemia. 9. Coagulopathy. 10. Metabolic encephalopathy. PLAN: We will continue our supportive care. We are talking to the family about transitioning over t o DNI/DNR status. They do need to understand that it does not mean that we will transition over comf ort care only at this point. My fear is that the patient's tumor lysis process is so severe that he is unlikely to be able to make a meaningful recovery. His metabolic encephalopathy is quite profound and there is possibility it has caused cerebral edema to a point of no return. The family understan ds that he is unlikely to recover from his severe liver injury, though we can continue to support him so long as he tolerates. Pulmonary or Critical Care will continue to follow very closely. CRITICAL CARE TIME: 30 minutes.
[2017-10-06 12:24] LABS: Potassium 7.3 mmol/L (3.5-5.1)
[2017-10-06 14:51] VITALS: BP 76/30
--- NOTE | 2017-10-06 16:04 | PDOC.PN ---
- Subjective Encounter Start Date: 10/06/17 Encounter Start Time: 10:40 - Objective Resuscitation Status: Resuscitation Status FULL:Full Resuscitation Vital Signs & Weight: Vital Signs (12 hours) Temp Pulse Resp BP Pulse Ox 10/06/17 14:37 78 76/30 L 10/06/17 14:00 19 10/06/17 12:09 72 117/27 L 10/06/17 12:00 19 10/06/17 09:58 20 10/06/17 08:00 97.8 F 81 19 94 L 10/06/17 07:29 81 95/43 L 10/06/17 06:00 20 Weight Admit Weight 148 lb 2.4 oz Weight 157 lb 10.088 oz Most Recent Monitor Data Heart Rate from ECG 81 NIBP 76/30 NIBP BP-Mean 45 Respiration from ECG 2 SpO2 82 I&O: 10/05/17 10/06/17 10/07/17 06:59 06:59 06:59 Intake Total 7786 50 Output Total 20 109 Balance -20 7677 50 Result Diagrams: 10/06/17 07:30 10/06/17 11:30 Additional Labs: Accuchecks 10/06/17 10/06/17 10/06/17 11:37 06:37 00:58 POC Glucose 124 H 107 196 H 10/05/17 19:54 POC Glucose 152 H Dx/Plan (1) PEA (Pulseless electrical activity) Code(s): I46.9 - CARDIAC ARREST, CAUSE UNSPECIFIED Status: Acute (2) LEORA (acute kidney injury) Code(s): N17.9 - ACUTE KIDNEY FAILURE, UNSPECIFIED Status: Acute (3) Shock liver Code(s): K72.00 - ACUTE AND SUBACUTE HEPATIC FAILURE WITHOUT COMA Status: Acute (4) Acute hypoxemic respiratory failure Code(s): J96.01 - ACUTE RESPIRATORY FAILURE WITH HYPOXIA Status: Acute (5) Adenocarcinoma of colon metastatic to liver Code(s): C18.9 - MALIGNANT NEOPLASM OF COLON, UNSPECIFIED; C78.7 - SECONDARY MALIG NEOPLASM OF LIVER AND INTRAHEPATIC BILE DUCT Status: Acute (6) 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
[2017-10-06] MEDS ORDERED: Sodium Chloride 0.9% 1,000 ML IV SCH (16:15)
[2017-10-06] MEDS ORDERED: Vasopressin 40 UNIT, Admixture Fee 1 EACH in Sodium Chloride 0.9% 100 ML IV SCH (16:15)
[2017-10-06 20:18] VITALS: TEMP 97.9
--- NOTE | 2017-10-06 23:00 | PRG ---
DATE OF SERVICE: 10/06/2017 SUBJECTIVE: Mr. Raymond remains intubated. He was dialyzed twice yesterday for hyperkalemia. He is intubated and sedated. Son is at the bedside and I have talked with him. PHYSICAL EXAMINATION: VITAL SIGNS: Temperature 97, pulse 75, blood pressure 117/27. In's and out's 7786 and 109. Ortega 9 mL of urine. Gastric draining 100 mL. He had 2000 mL removed on dialysis. GENERAL: On exam, remains intubated, deeply jaundiced, slight nonpurposeful movement. ABDOMEN: Massive hepatomegaly. EXTREMITIES: Reveals edema. LABORATORY STUDIES: White count 12.3, hemoglobin is 8, platelet count is 110, 30% bands. INR is 3.4 down from 5.9 at 2100 yesterday. Blood gas; pH 7.23, pCO2 is 25, pO2 is 96. Sodium 138, potassium 6.7, bicarbonate 8, chloride 97, anion gap is 33, bilirubin is 15.2, AST is greater than 3,500, ALT i s 3002, alkaline phosphatase was 1674. ASSESSMENT: 1. 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 Cannot rule out Budd-Chiari ischemic phenomenon. He is being empirically treated with acetylcysteine; it is possible that he had t oo much Tylenol overdose related to his pain medications; however, I think that is unlikely with the amount of pain medicine he took. He had negative Tylenol level 24 hours after being admitted. 2. Metastatic colon cancer with outside CAT scan evidence of multiple masses in the liver. The live r is much bigger now and I suspect this easily represents progression of the cancer or vascular catas trophe related to tumor in-growth in the vessels. In any event, this is fulminant hepatic failure an d if it is not survivable, I would recommend that the patient would be DNR. I think at this time if potassium continues to rise, we need to move towards comfort measurements. I think dialysis was futi le at this point in time. This has been conveyed to the family at the bedside and patient's nurse.
--- NOTE | 2017-10-06 23:02 | PRG ---
DATE OF SERVICE: 10/06/2017 SUBJECTIVE: The patient seen and examined, still in very critical condition, noted with the followin g vital signs. PHYSICAL EXAMINATION: VITAL SIGNS: Blood pressure , pulse 81. HEENT: Remarkable for endotracheal tube in place. CARDIOVASCULAR: First and second heart sounds were heard. RESPIRATORY: Reveals vented sounds. DIGESTIVE: Revealed a benign abdomen. EXTREMITIES: No peripheral edema. SKIN: No new gross rash. LYMPHATICS: No peripheral lymphadenopathy. LABORATORY INVESTIGATION: Significant for severe hyperkalemia 7.3 with a bicarbonate of 8, creatinin e 2.02, total bilirubin of 15.2. IMPRESSION: 1. Severe hyperkalemia in the context of possible rapid tissue release of potassium compounded by ce llular shift of potassium due to severe metabolic acidosis. 2. Acute kidney injury. 3. End-stage colorectal carcinoma. PLAN: 1. I did discuss with the family as it relates to the very poor prognostic outlook of this patient. The rapidity of degeneration of the potassium is quite alarming. Patient had to be dialyzed twice t ivanna that does not guarantee that the hyperkalemia resurgence will not recur. The family to discuss with more family members and make a decision as it relates to the extent of treatment as I do believe that the driving force for this problem is the end-stage colorectal carcinoma, which is not receivin g any treatment for at this point. 2. Further management, treatment will be dependent on the clinical course, but the prognosis is very bad.
[2017-10-06] MEDS ORDERED: Insulin Regular 300 UNITS/3 ML VIAL ONE (23:29)
--- NOTE | 2017-10-06 23:31 | PDOC.EVN ---
Event Note - Event Note Event Note: Attended Joao Candelaria as on-call hospitalist. Reviewed chart. Joao Candelaria run by BRANDYN Priest with [facility]. Pt currently intubated. Discussed with and daughter. They would like him to be DNR.
[2017-10-06] MEDS: Norepinephrine 16 MG in Sodium Chloride 0.9% 250 ML 250 ML IVPB PRN (23:38)
[2017-10-07] MEDS ORDERED: Sodium Bicarb 50 MEQ/50 ML Abboject 8.4% SYRINGE ONE (01:00)
[2017-10-07] MEDS ORDERED: Dextrose 50% Abboject 50 ML SYRINGE ONE (01:00)
[2017-10-07] MEDS ORDERED: Calcium Chloride 1 GM/10 ML Abboject SYRINGE ONE (01:00)
[2017-10-07 03:54] LABS: Actual Bicarbonate (HCO3a) 22.9 mEq/L (22-26); Base Excess (BEa) -2.8 mEq/L (0 (+/-) 2.5); Calcium, Ionized 1.1 mmol/L (1.12-1.30); Hematocrit-ABG 21.5 % (42.0-52.0); O2 Tension (PaO2) 141.9 mmHg (80.0-100.0); Puncture Site ALINE; pH, Arterial 7.33 (7.35-7.45)
--- NOTE | 2017-10-07 09:05 | RAD ---
PORTABLE CHEST: Date: 10/07/17 HISTORY: Post CPR. COMPARISON: 10/05/17. FINDINGS/IMPRESSION: ET tube is in place with tip above manuela. NG tube is coiled in the stomach. Bilateral perihilar infi ltrates consistent with edema. POS: [facility]
--- NOTE | 2017-10-10 17:26 | EKG ---
Test Reason : STAT Blood Pressure : / mmHG Vent. Rate : 127 BPM Atrial Rate : 127 BPM P-R Int : 124 ms QRS Dur : 074 ms QT Int : 314 ms P-R-T Axes : 070 -42 233 degrees QTc Int : 456 ms Sinus tachycardia Left axis deviation Low voltage QRS Abnormal ECG When compared with ECG of 04-OCT-2017 19:44, (Unconfirmed) Previous ECG has undetermined rhythm, needs review (RBBB and left anterior fascicular block) is no longer Present Confirmed by DR. Prince BENITEZ ([id number]) on 10/10/2017 5:25:45 PM Referred By: IGNACIO Confirmed By:DR. Prince BENITEZ
--- NOTE | 2017-10-16 15:31 | DIS ---
DATE OF ADMISSION: 10/04/2017 DATE OF : 10/07/2017 TIME OF : 01:45. CAUSE OF : 1. Cardiac arrest, immediate. 2. Pulseless electrical activity due to electrolyte abnormalities. 3. Multiorgan failure secondary to acute hypoxemic events. CONSULTATIONS: 1. Nephrology, Dr. Trudi Rain, 10/04/2017. 2. Dr. Prasanna Sumner, 10/05/2017. 3. Gastroenterology, Dr. Saha on 10/05/2017. PROCEDURES: Echocardiogram on 10/05/2017 that showed an EF of 30% to 35% and ascites. HISTORY AND PHYSICAL: Mr. Raymond is a 71-year-old male with a recent diagnosis of metastatic keron nocarcinoma of the lungs, who was brought in the emergency department on 10/04/2017 for cardiac arres t with pulseless electrical activity, status post cardiopulmonary resuscitation with subsequent acute kidney injury, shock liver and multiorgan failure. He was intubated in the field due to not protect ing his airway and being found down, was probably in pulseless electrical activity. CPR was initiate d. The patient was intubated in the field and brought to the emergency department. On arrival, the patient had return of spontaneous circulation and was found to be in ventricular tach ycardia prior to transport. He was subsequently intubated and brought to the emergency department. Here, CT scan of the abdomen and pelvis showed a consolidation of the posterior medial aspect of the bilateral lower lobes and right upper lobe, cholelithiasis, elevated creatinine on labs with increase d LFTs, and potassium of 7.3. The patient was admitted to CCU. Nephrology was consulted urgently. We started on hemodialysis and a bicarbonate drip and Levophed for blood pressure support. HOSPITAL COURSE: The patient was seen and examined by Dr. Rosenbaum and admitted with the above plan. On 10/06/2017, in the morning, the patient was stable, but critically ill and worsening. Later that evening just before midnight, the patient underwent another pulseless electrical activity CODE BLUE with return of spontaneous circulation. At that time, the family wished him to be DNR and so no furt her increase in level of care was provided. On 10/07/2017 at 01:45, the patient again went into PEA and lost spontaneous circulation and blood pressure. At 01:45, the patient was pronounced . DISPOSITION: [place] [facility] [place] [facility]. Did not meet criteria for autopsy . Family was notified by nursing.
== END 2017-10-07 01:45 | disposition expired | DRG 640 ==
LOC: ERS 19:36 → CCU 22:48
PROVIDERS: ADMIT Internal Medicine; ATTEND Internal Medicine
PROC: 5A1D70Z Performance of Urinary Filtration, Intermittent, Less than 6 Hours Per Day (ICD-10-PCS; 2017-10-04)
PROC: 5A1945Z Respiratory Ventilation, 24-96 Consecutive Hours (ICD-10-PCS; 2017-10-04)
PROC: 02HV33Z Insertion of Infusion Device into Superior Vena Cava, Percutaneous Approach (ICD-10-PCS; principal; 2017-10-05)
PROC: 06H033Z Insertion of Infusion Device into Inferior Vena Cava, Percutaneous Approach (ICD-10-PCS; 2017-10-05)
PROC: 30233N1 Transfusion of Nonautologous Red Blood Cells into Peripheral Vein, Percutaneous Approach (ICD-10-PCS; 2017-10-06)
PROC: 5A1D70Z Performance of Urinary Filtration, Intermittent, Less than 6 Hours Per Day (ICD-10-PCS; 2017-10-06)
DX: E87.5 Hyperkalemia (principal); K72.00 Acute and subacute hepatic failure without coma; J69.0 Pneumonitis due to inhalation of food and vomit; E88.3 Tumor lysis syndrome; I46.8 Cardiac arrest due to other underlying condition; E43 Unspecified severe protein-calorie malnutrition; A41.9 Sepsis, unspecified organism; J96.01 Acute respiratory failure with hypoxia; G93.41 Metabolic encephalopathy; R65.21 Severe sepsis with septic shock; C78.01 Secondary malignant neoplasm of right lung; I47.2 Ventricular tachycardia; D68.9 Coagulation defect, unspecified; C78.02 Secondary malignant neoplasm of left lung; C18.9 Malignant neoplasm of colon, unspecified; C78.7 Secondary malignant neoplasm of liver and intrahepatic bile duct; I24.8 Other forms of acute ischemic heart disease; N39.0 Urinary tract infection, site not specified; N17.9 Acute kidney failure, unspecified; N18.9 Chronic kidney disease, unspecified; E87.2 Acidosis; Z66 Do not resuscitate; K80.20 Calculus of gallbladder without cholecystitis without obstruction; K76.0 Fatty (change of) liver, not elsewhere classified; K75.89 Other specified inflammatory liver diseases; R68.0 Hypothermia, not associated with low environmental temperature; E16.2 Hypoglycemia, unspecified; R73.9 Hyperglycemia, unspecified; E78.5 Hyperlipidemia, unspecified; I12.9 Hypertensive chronic kidney disease with stage 1 through stage 4 chronic kidney disease, or unspecified chronic kidney disease
CPT/HCPCS: 36415; 36416; 36430; 36556; 51702; 70450; 71045; 71250; 74177; 76705; 80053; 80162; 80306; 80307; 81003; 81015; 82140; 82310; 82330; 82378; 82550; 82553; 82728; 82803; 82805; 83605; 83615; 83690; 83735; 83880; 84100; 84153; 84443; 84484; 84550; 85007; 85014; 85025; 85027; 85379; 85610; 85730; 86704; 86706; 86803; 86850; 86900; 86901; 87040; 87076; 87086; 87340; 90471; 90682; 90935; 93005; 93010; 93306; 94002; 94003; 94640; 96365; 96366; 96368; 96375; 96376; A4216; G0008; G0257; J0132; J0171; J0461; J0692; J1644; J1720; J1815; J2270; J2405; J2543; J2704; J2920; J3010; J3370; J3430; J7042; J7050; J7070; J7611; P9016; P9059; Q2036; S0028